=== PATIENT | male | born 1955 | race Caucasian/White ===

== ENCOUNTER → 2016-09-20 09:11 | Outpatient (CLI) | payer MEDICAID | END | disposition home or self-care (01) | LOC: D.CT 09:11 | DX: R59.1 Generalized enlarged lymph nodes (principal) ==

== ENCOUNTER → 2018-05-29 08:10 | Outpatient (CLI) | payer MEDICAID | END | disposition home or self-care (01) | LOC: D.US 05-22 07:00 | DX: Z86.19 Personal history of other infectious and parasitic diseases (principal); R19.5 Other fecal abnormalities; R13.10 Dysphagia, unspecified ==

== ENCOUNTER 2018-06-23 09:34 | Day surgery (SDC) | payer MEDICAID ==
[~2018-06-23] VITALS: Ht 180.3 cm; Wt 72.7 kg
[2018-06-23 09:59] LABS: BASOPHILS 0.5 % (0-2); EOSINOPHILS 3.2 % (0-7); HEMATOCRIT 44.3 % (42.0-54.0); HEMOGLOBIN 15.2 g/dL (13.5-17.5); LYMPHOCYTES 13.8 % (15-50); MCH 32.3 pg (26.0-34.0); MCHC 34.3 g/dL (31.0-37.0); MCV 94.3 fL (80.0-100.0); MONOCYTES 12.3 % (2-11); NEUTROPHILS 70.2 % (40-80); PLATELET COUNT 95 10x3/uL (130-400); RDW 13.3 % (11.5-14.5); WBC 4.1 10x3/uL (4.8-10.8)
[2018-06-23 10:13] LABS: ALBUMIN 3.7 g/dL (3.4-5.0); ALKALINE PHOSPHATASE 51 U/L (46-116); ALT (SGPT) 25 U/L (10-68); BILIRUBIN - TOTAL 0.77 mg/dL (0.2-1.3); CALC OSMOLALITY 279 mosm/kg (275-300); CALCIUM 8.8 mg/dL (8.5-10.1); CARBON DIOXIDE 30.1 mmol/L (21.0-32.0); CHLORIDE - SERUM 105 mmol/L (98-107); CREATININE - SERUM 0.9 mg/dL (0.6-1.3); GLUCOSE 102 mg/dL (74-106); POTASSIUM - SERUM 4.5 mmol/L (3.5-5.1); PROTEIN - SERUM 7.7 g/dL (6.4-8.2); SODIUM 140 mmol/L (136-145); UREA NITROGEN 14 mg/dL (7-18); eGFR NON AFRICAN AMERICAN 90 mL/min (90-120)
[2018-06-23 10:16] LABS: APTT 32.1 SECONDS (22.8-39.4); INR 1.13 (0.85-1.17)
[2018-06-23 10:30] VITALS: BP 116/68; Ht 180.3 cm; Wt 72.7 kg
[2018-06-23 10:37] LABS: ANISOCYTOSIS OCC; PLATELET ESTIMATE DECREASED
--- NOTE | 2018-06-23 12:07 | NUR ---
PT REC'D TO ROOM VIA STRETCHER FROM GI LAB. DROWSY, RESPONDS READILY TO VERBAL STIMULI.
--- NOTE | 2018-06-23 12:30 | NUR ---
PT MORE ALERT. REQUESTED AND PROVIDED [place].
--- NOTE | 2018-06-23 12:53 | NUR ---
DR. PAYTON IN TO SPEAK WITH PT RE FINDINGS. IV D/C'D CATH INTACT.
--- NOTE | 2018-06-23 13:05 | NUR ---
D/C INSTRUCTIONS EXPLAINED TO PT. VOICED UNDERSTANDING. COPIES OF ALL GIVEN. D/C'D HOME VIA W/C TO PRIVATE CAR.
--- NOTE | 2018-06-23 15:47 | OP ---
PATIENT NAME: GARFIELD DILLARD MEDICAL RECORD: [id number] :51 [facility]: SURGEON: MAXIM PAYTON DO DATE OF OPERATION: 06/23/2018 PROCEDURE: EGD with biopsy and variceal ligation. SCOPE: Olympus video gastroscope. MEDICATIONS: Propofol 400 mg IV per anesthesia. ESTIMATED BLOOD LOSS: Minimal. COMPLICATIONS: None. FINDINGS AND DESCRIPTION OF PROCEDURE: Informed consent was given. The patient was made comfortable with the above medication. After reaching an adequate level of sedation by slow IV push, the patient was placed on his left side. The endoscope was advanced under direct visualization through the mouth to the second portion of the duodenum. The upper esophagus appeared normal. There was no evidence of residual tumor or abnormalities involving the upper third of the esophagus. In the middle and distal thirds of the esophagus, there were extensive grade III esophageal varices. After the completion of the evaluation of the rest of the stomach and small bowel, the endoscope was fitted with a variceal band ligator and 3 columns were banded successfully with decompression proximally. At the GE junction, there was evidence of LA class B reflux esophagitis. The patient may also have Luz's. No biopsies were taken of this site on today's examination based on its location and very high risk of bleeding with surrounding varices. The endoscope was advanced beyond the GE junction into the stomach and retroflexed to view the cardia and fundus. There was no hiatal hernia appreciated. There were some small gastric varices without stigmata. Throughout the entire stomach, there was very mild evidence of portal hypertensive gastropathy. A single cold forceps biopsies was taken in the antrum to rule out the presence of H. pylori and to submit for histopathology. The endoscope was advanced beyond the pylorus into the duodenum. The entire examined duodenum to the second portion appeared normal. The endoscope was withdrawn from the patient. The patient tolerated the procedure well and there were no complications. IMPRESSION: 1. Grade III esophageal varices without bleeding stigmata. Three bands were placed successfully. 2. LA class B reflux-induced esophagitis and possible Luz's mucosa. 3. Gastric varices without bleeding stigmata. 4. Mild portal hypertensive gastropathy. PLAN AND RECOMMENDATIONS: 1. Discharge home when recovery parameters are met. 2. Follow up biopsy specimen results. 3. We will give a prescription for a PPI 40 mg daily, regarding the reflux and banded varices. 4. Repeat EGD in 4-6 weeks for further banding as indicated. 5. We will recommend a liquid diet times 48 hours, then a soft diet times 48 hours followed by regular diet. OPERATIVE REPORT [id number] GILMAGARFIELDGloria ISAAC TRANSINT:[id number] Voice Confirmation ID: [id number] DOCUMENT ID: [id number] MAXIM PAYTON DO at 1547 CC: [id number] DICTATION DATE: 06/23/18 1157 BRUSHER TENDER: 06/23/18 1446 [facility] 06/23/18 [facility] [address] [place] [address]
== END 2018-06-23 13:18 | disposition home or self-care (01) ==
LOC: D.OPS 09:34
PROVIDERS: Anesthesiology
DX: I85.00 Esophageal varices without bleeding (principal); K21.0 Gastro-esophageal reflux disease with esophagitis; I86.4 Gastric varices; K76.6 Portal hypertension; K31.89 Other diseases of stomach and duodenum; Z01.812 Encounter for preprocedural laboratory examination

== ENCOUNTER 2018-07-28 08:27 | Day surgery (SDC) | payer MEDICAID ==
[~2018-07-28] VITALS: Ht 180.3 cm; Wt 72.7 kg
[2018-07-28 08:53] LABS: HEMATOCRIT 43.3 % (42.0-54.0); HEMOGLOBIN 15.1 g/dL (13.5-17.5); MCH 32.5 pg (26.0-34.0); MCHC 34.9 g/dL (31.0-37.0); MCV 93.3 fL (80.0-100.0); MEAN PLATELET VOLUME 11.5 fL (7.4-10.4); PLATELET COUNT 91 10x3/uL (130-400); RBC 4.64 10x6/uL (4.20-6.10); RDW 13.5 % (11.5-14.5); WBC 4.7 10x3/uL (4.8-10.8)
[2018-07-28 09:44] LABS: PLATELET ESTIMATE DECREASED
[2018-07-28 10:08] VITALS: Ht 180.3 cm; Wt 72.7 kg
--- NOTE | 2018-07-28 11:36 | NUR ---
1125-AYAZ FROM GI LAB. 1130- VOISE HERE TO REPORT FINDINGS. 1135-FULL LIQUIDS SERVED.
--- NOTE | 2018-07-30 09:41 | OP ---
PATIENT NAME: GARFIELD DILLARD MEDICAL RECORD: [id number] :53 [facility]ATION[facility] ADMISSION DATE: SURGEON: MAXIM PAYTON DO DATE OF OPERATION: 07/28/2018 PROCEDURE: Colonoscopy. INDICATIONS FOR PROCEDURE: Occult blood in stools. SCOPE: Olympus video pediatric colonoscope. MEDICATIONS: Propofol 300 mg IV per anesthesia. WITHDRAWAL TIME: 10 minutes. ESTIMATED BLOOD LOSS: None. COMPLICATIONS: None. FINDINGS AND DESCRIPTION OF PROCEDURE: Informed consent was given. The patient was made comfortable with the above medication. After reaching an adequate level of sedation by slow IV push, the patient was placed on his left side. A digital rectal examination was performed and was normal. The endoscope was then advanced under direct visualization through the rectum, to the cecum and terminal ileum. The endoscope was slowly withdrawn and mucosa was carefully examined. The prep quality was good. There were no polyps visualized on today's examination. There were no ulcers or other abnormalities. There were diverticula located in the sigmoid colon. There were mixed, large and small mouth diverticula of mild severity. Retroflexion was performed in the rectum with visualization of large grade I internal hemorrhoids without active bleeding. The endoscope was withdrawn from the patient. The patient tolerated the procedure well and there were no complications. IMPRESSIONS: 1. Mild diverticulosis of the sigmoid colon. 2. Grade I internal hemorrhoids. PLAN AND RECOMMENDATIONS: 1. Discharge home when recovery parameters are met. 2. High fiber diet. 3. Supplement diet with 1 tablespoon of Metamucil or another fiber daily. 4. Continue current medications. 5. Recall colonoscopy in 7-10 years. TRANSINT:[id number] Voice Confirmation ID: [id number] DOCUMENT ID: [id number] MAXIM PAYTON DO at 0941 CC: [id number] DICTATION DATE: 07/28/18 1111 ACTIVATED SLUDGE ATTENDANT: 07/28/18 1136 [facility] 07/28/18 [place] [id number]
== END 2018-07-28 11:55 | disposition home or self-care (01) ==
LOC: D.OPS 08:27
PROVIDERS: Anesthesiology
DX: K92.1 Melena (principal); K57.30 Diverticulosis of large intestine without perforation or abscess without bleeding; K64.0 First degree hemorrhoids; Z01.812 Encounter for preprocedural laboratory examination

== ENCOUNTER 2018-08-13 05:49 | Day surgery (SDC) | payer MEDICAID ==
[~2018-08-13] VITALS: Ht 182.9 cm; Wt 73.6 kg
[2018-08-13 06:19] LABS: HEMATOCRIT 45.2 % (42.0-54.0); HEMOGLOBIN 15.4 g/dL (13.5-17.5); MCH 31.9 pg (26.0-34.0); MCHC 34.1 g/dL (31.0-37.0); MCV 93.6 fL (80.0-100.0); MEAN PLATELET VOLUME 11.5 fL (7.4-10.4); RBC 4.83 10x6/uL (4.20-6.10); RDW 13.4 % (11.5-14.5); WBC 3.7 10x3/uL (4.8-10.8)
[2018-08-13 06:43] VITALS: BP 107/64; Ht 182.9 cm; Wt 73.6 kg
--- NOTE | 2018-08-13 08:34 | NUR ---
DC ISNTRUCTIONS GIVEN TO PT. STATES UNDERSTANDING. DC'D IV CATH FULLY INTACT. PT LEFT UNIT VIA WC AT 1319
--- NOTE | 2018-08-13 12:06 | OP ---
PATIENT NAME: GARFIELD DILLARD MEDICAL RECORD: [id number] :51 LOCATION:[facility] ADMISSION DATE: SURGEON: MAXIM PAYTON DO DATE OF OPERATION: 08/13/2018 PROCEDURE: EGD with variceal band ligation times 2. SCOPE: Olympus video gastroscope. MEDICATIONS: Propofol IV per anesthesia (see anesthesia report). ESTIMATED BLOOD LOSS: Minimal. COMPLICATIONS: None. INDICATIONS FOR PROCEDURE: Surveillance of esophageal varices. The patient's last upper endoscopy with band ligation was 06/23/2018. FINDINGS: Informed consent was given. The patient was made comfortable with the above medication. After reaching an adequate level of sedation by slow IV push, the patient was placed on his left side. The endoscope was advanced under direct visualization through the mouth to the second portion of the duodenum. The upper third of the esophagus appeared normal. In the middle and distal thirds of the esophagus, there were grade II to grade III esophageal varices without bleeding stigmata present. At the GE junction, there was evidence of LA class B reflux-induced esophagitis and possible Luz's mucosa. No biopsies were taken on today's examination. The endoscope was advanced beyond the GE junction into the stomach and retroflexed to view the cardia and fundus. There was a small sliding hiatal hernia present. There were no obvious gastric varices present on today's examination. Throughout the entire stomach, there was evidence of mild portal hypertensive gastropathy. The endoscope was advanced beyond the pylorus into the duodenum, which appeared normal down to the second portion. The endoscope was then withdrawn from the patient and fitted with a [employer] speed band ligator. The endoscope was advanced back down to the GE junction and 2 columns were identified for banding. Two bands were placed successfully over these columns. The endoscope was then withdrawn from the patient. The patient tolerated the procedure well and there were no complications. IMPRESSION: 1. Grade II to grade III esophageal varices without bleeding stigmata. Two bands were placed successfully. 2. LA class B reflux-induced esophagitis and possible Luz's mucosa. 3. Mild portal hypertensive gastropathy. 4. Small sliding hiatal hernia. PLAN AND RECOMMENDATIONS: 1. Discharge home when recovery parameters are met. 2. Continue current medications. 3. Liquid diet times 48 hours followed by soft diet times 48 hours, then regular. 4. Repeat EGD in 4-6 weeks for repeat banding as indicated. TRANSINT:[id number] Voice Confirmation ID: [id number] DOCUMENT ID: [id number] OPERATIVE REPORT [id number] GARFIELD DILLARD NATHAN A DO at 1206 CC: [id number] DICTATION DATE: 08/13/18 0758 SOFA BACK UPHOLSTERER: 08/13/18 0812 [facility] 08/13/[address] [address]
== END 2018-08-13 08:33 | disposition home or self-care (01) ==
LOC: D.OPS 05:49
PROVIDERS: Anesthesiology; ATTEND Internal Medicine Gastroenterology
DX: I85.00 Esophageal varices without bleeding (principal); K21.0 Gastro-esophageal reflux disease with esophagitis; K76.6 Portal hypertension; K31.89 Other diseases of stomach and duodenum; K44.9 Diaphragmatic hernia without obstruction or gangrene

== ENCOUNTER → 2019-01-09 08:30 | Outpatient (CLI) | payer MEDICARE ==
[2018-08-13 06:43] VITALS: BMI 22.0
[2019-01-09 09:06] LABS: BASOPHILS 0.4 % (0-2); HEMATOCRIT 43.2 % (42.0-54.0); HEMOGLOBIN 15.3 g/dL (13.5-17.5); LYMPHOCYTES 10.3 % (15-50); MCH 32.6 pg (26.0-34.0); MCHC 35.4 g/dL (31.0-37.0); MCV 92.1 fL (80.0-100.0); MEAN PLATELET VOLUME 11.3 fL (7.4-10.4); MONOCYTES 7.4 % (2-11); NEUTROPHILS 77.9 % (40-80); PLATELET COUNT 108 10x3/uL (130-400); RBC 4.69 10x6/uL (4.20-6.10); RDW 13.4 % (11.5-14.5); WBC 4.5 10x3/uL (4.8-10.8)
[2019-01-09 09:20] LABS: ALBUMIN 3.8 g/dL (3.4-5.0); ALKALINE PHOSPHATASE 55 U/L (46-116); ALT (SGPT) 23 U/L (10-68); BILIRUBIN - DIRECT 0.24 mg/dL (0.00-0.30); BILIRUBIN - INDIRECT 0.61 mg/dL (0.00-1.00); BILIRUBIN - TOTAL 0.85 mg/dL (0.2-1.3); CALC OSMOLALITY 278 mosm/kg (275-300); CALCIUM 8.8 mg/dL (8.5-10.1); CARBON DIOXIDE 31.1 mmol/L (21.0-32.0); CHLORIDE - SERUM 105 mmol/L (98-107); CREATININE - SERUM 0.9 mg/dL (0.6-1.3); GLUCOSE 104 mg/dL (74-106); INR 1.09 (0.85-1.17); POTASSIUM - SERUM 4.6 mmol/L (3.5-5.1); PROTEIN - SERUM 7.9 g/dL (6.4-8.2); PROTIME 13.6 SECONDS (11.6-15.0); SODIUM 140 mmol/L (136-145); UREA NITROGEN 12 mg/dL (7-18); eGFR NON AFRICAN AMERICAN 90 mL/min (90-120)
[2019-01-10 14:08] LABS: ALPHA FETOPROTEIN -(TUMOR MRK) 3.5 ng/mL (0.0-8.3)
[2019-01-12 10:09] LABS: HCVGENO - HEP C QUANT HCV Not Detected IU/mL (())
== END | disposition home or self-care (01) ==
LOC: D.LAB 01-02 09:45 → D.US 01-02 10:00 → D.LAB 08:30
PROVIDERS: ATTEND Internal Medicine Gastroenterology
DX: K74.69 Other cirrhosis of liver (principal); R11.0 Nausea; Z86.19 Personal history of other infectious and parasitic diseases

== ENCOUNTER 2019-04-27 09:04 | Day surgery (SDC) | payer MEDICARE ==
[~2019-04-27] VITALS: Ht 182.9 cm; Wt 75.9 kg
[2019-04-27 09:37] LABS: HEMATOCRIT 46.4 % (42.0-54.0); HEMOGLOBIN 15.7 g/dL (13.5-17.5); MCH 32.4 pg (26.0-34.0); MCHC 33.8 g/dL (31.0-37.0); MCV 95.7 fL (80.0-100.0); RBC 4.85 10x6/uL (4.20-6.10); RDW 13.2 % (11.5-14.5); WBC 5.2 10x3/uL (4.8-10.8)
[2019-04-27 09:48] LABS: ALKALINE PHOSPHATASE 57 U/L (46-116); ALT (SGPT) 37 U/L (10-68); BILIRUBIN - TOTAL 0.77 mg/dL (0.2-1.3); CALC OSMOLALITY 284 mosm/kg (275-300); CARBON DIOXIDE 31.4 mmol/L (21.0-32.0); CHLORIDE - SERUM 106 mmol/L (98-107); GLUCOSE 113 mg/dL (74-106); POTASSIUM - SERUM 4.2 mmol/L (3.5-5.1); PROTEIN - SERUM 8.1 g/dL (6.4-8.2); SODIUM 142 mmol/L (136-145); UREA NITROGEN 15 mg/dL (7-18); eGFR NON AFRICAN AMERICAN 80 mL/min (90-120)
[2019-04-27 10:04] VITALS: BP 111/67; Ht 182.9 cm; Wt 75.9 kg
--- NOTE | 2019-04-27 11:33 | NUR ---
1110 IV DC'D. CATHETER TIP INTACT. NO BLEEDING AT SITE. BANDAID APPLIED.
--- NOTE | 2019-04-29 19:09 | OP ---
PATIENT NAME: GARFIELD DILLARD MEDICAL RECORD: [id number] :51 LOCATION:[facility] ADMISSION DATE: SURGEON: MAXIM PAYTON DO DATE OF OPERATION: 04/27/2019 PROCEDURE: EGD with biopsies. INDICATIONS FOR PROCEDURE: Follow up on esophageal varices status post banding times 2 with the last EGD in 08/13/2018. SCOPE: Olympus video gastroscope. MEDICATIONS: Propofol 200 mg IV per anesthesia. ESTIMATED BLOOD LOSS: Minimal. COMPLICATIONS: None. FINDINGS: Informed consent was given. The patient was made comfortable with the above medication. After reaching an adequate level of sedation by slow IV push, the patient was placed on his left side. The endoscope was advanced under direct visualization through the mouth to the second portion of the duodenum. In the esophagus, there were grade I esophageal varices without bleeding stigmata. No bands were placed on today's examination. At the GE junction, there was evidence of LA class A reflux-induced esophagitis and possible Luz's esophagus. Two cold forceps biopsies were taken at the squamocolumnar junction to look for Luz mucosa. The endoscope was advanced through the GE junction into stomach and retroflexed to view the cardia and fundus. There was no evidence of gastric varices. There was a very small sliding hiatal hernia present. Throughout the stomach, there was mild portal hypertensive gastropathy without bleeding. A single cold forceps biopsy was taken from the antrum to rule out the presence of H. pylori and to submit for histopathology. The endoscope was advanced beyond the pylorus into the duodenum down to the second portion. The entire examined duodenum appeared normal. The endoscope was withdrawn from the patient. The patient tolerated the procedure well and there were no complications. IMPRESSION: 1. Grade I esophageal varices without bleeding. No bands placed on today's examination. 2. LA class A reflux-induced esophagitis and possible Luz's esophagus. Biopsy taken. 3. Small sliding hiatal hernia. 4. Mild portal hypertensive gastropathy. PLAN AND RECOMMENDATIONS: 1. Discharge home when recovery parameters are met. 2. Follow up biopsy specimen results. 3. GERD diet and reflux precautions. 4. Continue current medications. 5. Repeat EGD in 1-2 years for surveillance of esophageal varices and possibly Luz's pending biopsies from today's examination. TRANSINT:[id number] Voice Confirmation ID: [id number] DOCUMENT ID: [id number] OPERATIVE REPORT [id number] GARFIELD DILLARD NATHAN A DO at 1909 CC: [id number] DICTATION DATE: 04/27/19 1041 SHOE PLANNER: 04/27/19 1054 [facility] 04/27/19 [facility] [address] [place] [id number]
== END 2019-04-27 11:30 | disposition home or self-care (01) ==
LOC: D.OPS 09:04
PROVIDERS: Anesthesiology; ATTEND Internal Medicine Gastroenterology
DX: I85.00 Esophageal varices without bleeding (principal); K21.0 Gastro-esophageal reflux disease with esophagitis; K44.9 Diaphragmatic hernia without obstruction or gangrene; K76.6 Portal hypertension; K31.89 Other diseases of stomach and duodenum; K74.60 Unspecified cirrhosis of liver

== ENCOUNTER → 2020-09-08 07:44 | Outpatient (CLI) | payer MEDICARE ==
[2019-04-27 10:04] VITALS: BMI 22.7
[2020-09-08 08:06] LABS: BASOPHILS 0.4 % (0-2); EOSINOPHILS 1.8 % (0-7); HEMOGLOBIN 14.5 g/dL (13.5-17.5); IMMATURE GRANULOCYTES 0.2 % (0-5); LYMPHOCYTE ABS# 0.48 10x3/uL (1.32-3.57); LYMPHOCYTES 9.9 % (15-50); MCH 30.9 pg (26.0-34.0); MCV 93.8 fL (80.0-100.0); MEAN PLATELET VOLUME 10.8 fL (7.4-10.4); MONOCYTES 9.7 % (2-11); PLATELET COUNT 126 10x3/uL (130-400); RBC 4.69 10x6/uL (4.20-6.10); RDW 13.3 % (11.5-14.5); WBC 4.9 10x3/uL (4.8-10.8)
[2020-09-08 08:50] LABS: ALKALINE PHOSPHATASE 62 U/L (30-120); ALT (SGPT) 25 U/L (10-68); BILIRUBIN - INDIRECT 0.52 mg/dL (0.00-1.00); BILIRUBIN - TOTAL 0.72 mg/dL (0.2-1.3); CALC OSMOLALITY 277 mosm/kg (275-300); CALCIUM 8.8 mg/dL (8.5-10.1); CARBON DIOXIDE 29.6 mmol/L (21.0-32.0); CHLORIDE - SERUM 102 mmol/L (98-107); GLUCOSE 100 mg/dL (74-106); POTASSIUM - SERUM 4.6 mmol/L (3.5-5.1); PROTEIN - SERUM 7.9 g/dL (6.4-8.2); SODIUM 138 mmol/L (136-145); UREA NITROGEN 17 mg/dL (7-18); eGFR NON AFRICAN AMERICAN 79 mL/min (90-120)
[2020-09-08 09:17] LABS: INR 1.14 (0.85-1.17); PROTIME 13.5 SECONDS (11.6-15.0)
== END | disposition home or self-care (01) ==
LOC: D.LAB 07:44 → D.US 08:30
PROVIDERS: ATTEND Internal Medicine Gastroenterology
DX: K74.60 Unspecified cirrhosis of liver (principal)